=== PATIENT | female | born 1940 | race Caucasian/White ===

== ENCOUNTER 2017-06-09 09:56 | Inpatient (IN) | payer MEDICARE, OTHER ==
[~2017-06-09] VITALS: Ht 165.1 cm; Wt 78.5 kg
[2017-06-09 11:03] LABS: HEMOGLOBIN 14.8 gm/dl (12.3-15.3); RED BLOOD COUNT 4.65 M/UL (4.00-5.10); WHITE BLOOD COUNT 9.4 K/UL (4.5-11.0)
[2017-06-09 11:24] LABS: BUN/CREATININE RATIO 24 (0-10)
[2017-06-09] MEDS ORDERED: MAGNESIUM400 MG PO (17:15)
[2017-06-09] MEDS ORDERED: LISINOPRIL-HCT1 EAC1 PO (17:15)
[2017-06-09] MEDS ORDERED: FISH OIL 1,0001 EAC3 PO (17:16)
[2017-06-09] MEDS ORDERED: COUMADIN 5MG TAB5 MG PO (17:16)
[2017-06-09] MEDS ORDERED: DIGOXIN250 MCG PO (17:17)
[2017-06-09] MEDS ORDERED: DILTIAZEM 24HR180 M1 PO (17:18)
[2017-06-09] MEDS ORDERED: [UNRECOGNIZED DRUG - SUPPLY] PO (17:19)
[2017-06-09] MEDS ORDERED: NITROSTAT0.4 MG SL (17:20)
[2017-06-09] MEDS ORDERED: COUMADIN 2.5MG2.5 MG PO (17:23)
[2017-06-10 02:54] LABS: HEMOGLOBIN 13.1 gm/dl (12.3-15.3); WHITE BLOOD COUNT 7.7 K/UL (4.5-11.0)
[2017-06-10 03:02] LABS: RED BLOOD COUNT 4.14 M/UL (4.00-5.10)
[2017-06-10 03:16] LABS: BUN/CREATININE RATIO 27 (0-10)
[2017-06-11 06:33] LABS: BUN/CREATININE RATIO 30 (0-10)
[2017-06-12 05:51] LABS: HEMOGLOBIN 12.3 gm/dl (12.3-15.3); RED BLOOD COUNT 3.84 M/UL (4.00-5.10)
[2017-06-12 05:56] LABS: WHITE BLOOD COUNT 14.1 K/UL (4.5-11.0)
[2017-06-12 06:15] LABS: BUN/CREATININE RATIO 23 (0-10)
[2017-06-13 06:21] LABS: HEMOGLOBIN 11.9 gm/dl (12.3-15.3); RED BLOOD COUNT 3.69 M/UL (4.00-5.10); WHITE BLOOD COUNT 15.2 K/UL (4.5-11.0)
[2017-06-13 06:39] LABS: BUN/CREATININE RATIO 22 (0-10)
[2017-06-14 05:02] LABS: RED BLOOD COUNT 3.61 M/UL (4.00-5.10); WHITE BLOOD COUNT 12.9 K/UL (4.5-11.0)
[2017-06-15 06:57] LABS: HEMOGLOBIN 12.1 gm/dl (12.3-15.3); WHITE BLOOD COUNT 12.4 K/UL (4.5-11.0)
[2017-06-15 06:59] LABS: RED BLOOD COUNT 3.02 M/UL (4.00-5.10)
[2017-06-15 07:26] LABS: BUN/CREATININE RATIO 24 (0-10)
[2017-06-15] MEDS ORDERED: LEVAQUIN500 MG PO (11:01)
[2017-06-15] MEDS ORDERED: BREO ELLIPTA 11 EACH INH (11:05)
[2017-06-15] MEDS ORDERED: IPRAT-ALBUT 0.5-3 ML INH (11:13)
[2017-06-15] MEDS ORDERED: TESSALON PERLE100 MG PO (11:16)
[2017-06-15] MEDS ORDERED: MEDROL DOSEPAK 24 MG PO (11:17)
[2017-06-15] MEDS ORDERED: ROBITUSSIN DM473 ML PO (11:19)
[2017-06-15] MEDS ORDERED: ACIDOPHILUS LACT1 GM PO (11:32)
== END 2017-06-15 09:45 | disposition home or self-care (01) | DRG 167 ==
LOC: ER1 09:56 → ZEROF 12:48 → MED SURG 4 12:48
PROVIDERS: Emergency Medicine; Family Medicine; Internal Medicine; Physician Assistant; Physician Assistant Medical; ADMIT Internal Medicine Infectious Disease
PROC: 0BBC8ZX Excision of Right Upper Lung Lobe, Via Natural or Artificial Opening Endoscopic, Diagnostic (ICD-10-PCS; principal; 2017-06-12 08:52)
DX: J18.9 Pneumonia, unspecified organism (principal); T17.890A Other foreign object in other parts of respiratory tract causing asphyxiation, initial encounter; N30.00 Acute cystitis without hematuria; J98.11 Atelectasis; E87.6 Hypokalemia; I25.10 Atherosclerotic heart disease of native coronary artery without angina pectoris; I10 Essential (primary) hypertension; I48.91 Unspecified atrial fibrillation; T36.1X5A Adverse effect of cephalosporins and other beta-lactam antibiotics, initial encounter; L50.0 Allergic urticaria; R01.1 Cardiac murmur, unspecified; R79.1 Abnormal coagulation profile; Z90.710 Acquired absence of both cervix and uterus; Z79.01 Long term (current) use of anticoagulants; Z95.0 Presence of cardiac pacemaker; Z96.619 Presence of unspecified artificial shoulder joint; Z90.711 Acquired absence of uterus with remaining cervical stump; Z88.5 Allergy status to narcotic agent; Z88.1 Allergy status to other antibiotic agents; Z88.6 Allergy status to analgesic agent; Z88.0 Allergy status to penicillin; Z88.8 Allergy status to other drugs, medicaments and biological substances; Z91.048 Other nonmedicinal substance allergy status; Z79.899 Other long term (current) drug therapy; Z82.49 Family history of ischemic heart disease and other diseases of the circulatory system; Z80.9 Family history of malignant neoplasm, unspecified; Z83.3 Family history of diabetes mellitus
CPT/HCPCS: 36415; 71020; 71250; 80048; 80053; 80162; 81001; 82550; 82553; 82962; 83036; 83540; 83690; 83735; 83880; 84100; 84484; 85025; 85027; 85610; 86140; 86615; 87015; 87040; 87070; 87086; 87102; 87116; 87205; 87278; 93005; 94640; 94664; 96374; 96375; 99285; J1200; J1335; J2185; J2250; J2920; J2930; J3010; J7030; J7050; Q0163

== ENCOUNTER 2021-10-14 11:57 | Emergency (ER) | payer MEDICARE, OTHER ==
[~2021-10-14 11:57] MED LIST: ACIDOPHILUS LACT1 GM PO; BANOPHEN25 MG PO; BREO ELLIPTA 11 EACH INH; CLARITIN 10MG T10 MG PO; COUMADIN 10MG T10 MG PO; COUMADIN 2.5MG2.5 MG PO; COUMADIN 5MG TAB5 MG PO; COUMADIN5 MG PO; COUMADIN7.5 MG PO; DIGOXIN250 MCG PO; DILTIAZEM 24HR180 M1 PO; FISH OIL 1,0001 EAC3 PO; IPRAT-ALBUT 0.5-3 ML INH; LEVAQUIN500 MG PO; LISINOPRIL-HCT1 EAC1 PO; LISINOPRIL-HCT1 EAC2 PO; MAGNESIUM400 MG PO; MAGOX 400400 MG PO; MEDROL DOSEPAK 24 MG PO; NITROSTAT0.4 MG SL; RANITIDINE15 MG/1 ML PO; ROBITUSSIN DM473 ML PO; TESSALON PERLE100 MG PO; VALSARTAN80 MG PO; VIBRAMYCIN100 MG PO; [UNRECOGNIZED DRUG - SUPPLY] PO
[2021-10-14 13:38] LABS: HEMOGLOBIN 12.8 gm/dl (12.3-15.3); RED BLOOD COUNT 4.01 M/UL (4.00-5.10); WHITE BLOOD COUNT 8.7 K/UL (4.5-11.0)
[2021-10-14 14:07] LABS: BUN/CREATININE RATIO 19 (0-10)
== END 2021-10-14 19:45 | disposition home or self-care (01) ==
LOC: ER1 11:57
PROVIDERS: Physician Assistant Medical
DX: S20.223A Contusion of bilateral back wall of thorax, initial encounter (principal); S70.11XA Contusion of right thigh, initial encounter; E11.9 Type 2 diabetes mellitus without complications; I48.91 Unspecified atrial fibrillation; Z95.0 Presence of cardiac pacemaker; Z79.01 Long term (current) use of anticoagulants; W01.0XXA Fall on same level from slipping, tripping and stumbling without subsequent striking against object, initial encounter
CPT/HCPCS: 71250; 73701; 80053; 81001; 82550; 82553; 83874; 84484; 85025; 85610; 93005; 99284; Q9967

== ENCOUNTER 2021-12-14 11:43 | Inpatient (IN) | payer MEDICARE, OTHER ==
[~2021-12-14] VITALS: Ht 165.1 cm; Wt 74.8 kg
[~2021-12-14 11:43] MED LIST changes: -DILTIAZEM 24HR180 M1 PO; +DILTIAZEM 24HR360 MG PO
[2021-12-14 13:00] LABS: HEMOGLOBIN 11.7 gm/dl (12.3-15.3); RED BLOOD COUNT 3.94 M/UL (4.00-5.10); WHITE BLOOD COUNT 7.6 K/UL (4.5-11.0)
[2021-12-14 13:27] LABS: BUN/CREATININE RATIO 18 (0-10)
[2021-12-14] MEDS ORDERED: ASPIRIN EC81 MG PO (16:17)
[2021-12-14] MEDS ORDERED: MAGNESIUM OXID500 MG PO (16:18)
[2021-12-15 04:25] LABS: HEMOGLOBIN 10.9 gm/dl (12.3-15.3); RED BLOOD COUNT 3.64 M/UL (4.00-5.10); WHITE BLOOD COUNT 6.6 K/UL (4.5-11.0)
[2021-12-15 04:31] LABS: BUN/CREATININE RATIO 21 (0-10)
[2021-12-16 07:26] LABS: BUN/CREATININE RATIO 22 (0-10)
[2021-12-16] MEDS ORDERED: LASIX40 MG PO (08:02)
[2021-12-16 08:17] LABS: HEMOGLOBIN 11.6 gm/dl (12.3-15.3); RED BLOOD COUNT 3.84 M/UL (4.00-5.10); WHITE BLOOD COUNT 6.1 K/UL (4.5-11.0)
== END 2021-12-16 12:30 | disposition home or self-care (01) | DRG 291 ==
LOC: ER1 11:43 → CDU 14:37 → MED SURG 4 14:37 → PROG CARE 12-15 19:38
PROVIDERS: Emergency Medicine; Internal Medicine; ADMIT Internal Medicine
PROC: B24BZZZ Ultrasonography of Heart with Aorta (ICD-10-PCS; principal; 2021-12-15)
DX: I11.0 Hypertensive heart disease with heart failure (principal); Z20.822 Contact with and (suspected) exposure to COVID-19; I50.31 Acute diastolic (congestive) heart failure; J96.21 Acute and chronic respiratory failure with hypoxia; N39.0 Urinary tract infection, site not specified; I31.3 Pericardial effusion (noninflammatory); I48.20 Chronic atrial fibrillation, unspecified; R29.6 Repeated falls; R79.1 Abnormal coagulation profile; I49.5 Sick sinus syndrome; Z96.1 Presence of intraocular lens; R41.3 Other amnesia; I08.3 Combined rheumatic disorders of mitral, aortic and tricuspid valves; I27.20 Pulmonary hypertension, unspecified; R33.9 Retention of urine, unspecified; Z88.1 Allergy status to other antibiotic agents; Z95.0 Presence of cardiac pacemaker; Z87.440 Personal history of urinary (tract) infections; Z90.710 Acquired absence of both cervix and uterus; Z79.01 Long term (current) use of anticoagulants; Z98.42 Cataract extraction status, left eye; Z98.41 Cataract extraction status, right eye; Z90.49 Acquired absence of other specified parts of digestive tract; Z98.890 Other specified postprocedural states; Z79.82 Long term (current) use of aspirin; Z98.1 Arthrodesis status; Z88.0 Allergy status to penicillin; Z88.2 Allergy status to sulfonamides; Z88.8 Allergy status to other drugs, medicaments and biological substances; Z80.9 Family history of malignant neoplasm, unspecified; Z83.3 Family history of diabetes mellitus; Z82.49 Family history of ischemic heart disease and other diseases of the circulatory system
CPT/HCPCS: ECHO; 36415; 51798; 70450; 71045; 80048; 80053; 80061; 81001; 82550; 82553; 83036; 83735; 83880; 84484; 85025; 85027; 85610; 85730; 87040; 87086; 93005; 93306; 96374; 97161; 97165; 99285; J1644; J1940; J2920; Q9967; U0002

== ENCOUNTER → 2021-12-18 | Outpatient (CLI) | payer MEDICARE, OTHER ==
[~2021-12-18] MED LIST changes: +ASPIRIN EC81 MG PO; +LASIX40 MG PO; +MAGNESIUM OXID500 MG PO; +WARFARIN SODIUM5 MG PO
== END ==
LOC: LAB 10:48
DX: I48.91 Unspecified atrial fibrillation (principal); Z79.01 Long term (current) use of anticoagulants
CPT/HCPCS: 36415; 85610

== ENCOUNTER 2022-01-04 09:22 | Inpatient (IN) | payer MEDICARE, OTHER ==
[~2022-01-04] VITALS: Ht 165.1 cm; Wt 61.2 kg
[~2022-01-04 09:22] MED LIST changes: -WARFARIN SODIUM5 MG PO
[2022-01-04 10:06] LABS: HEMOGLOBIN 12.1 gm/dl (12.3-15.3); RED BLOOD COUNT 3.97 M/UL (4.00-5.10)
[2022-01-04 10:40] LABS: BUN/CREATININE RATIO 25 (0-10)
[2022-01-04] MEDS ORDERED: WARFARIN SODIUM5 MG PO ×2 (11:58→16:18)
[2022-01-04] MEDS ORDERED: VITAMIN D 40400 UNIT PO (14:10)
[2022-01-04 15:19] LABS: HEMOGLOBIN 11.7 gm/dl (12.3-15.3)
[2022-01-04 22:26] LABS: HEMOGLOBIN 10.4 gm/dl (12.3-15.3)
[2022-01-05 07:01] LABS: HEMOGLOBIN 9.1 gm/dl (12.3-15.3)
[2022-01-05 07:03] LABS: RED BLOOD COUNT 3.01 M/UL (4.00-5.10); WHITE BLOOD COUNT 4.9 K/UL (4.5-11.0)
[2022-01-05 07:19] LABS: BUN/CREATININE RATIO 22 (0-10)
[2022-01-06 06:46] LABS: HEMOGLOBIN 8.1 gm/dl (12.3-15.3); WHITE BLOOD COUNT 4.7 K/UL (4.5-11.0)
[2022-01-06 06:47] LABS: RED BLOOD COUNT 2.66 M/UL (4.00-5.10)
[2022-01-06 07:16] LABS: BUN/CREATININE RATIO 16 (0-10)
[2022-01-07 06:36] LABS: HEMOGLOBIN 8.4 gm/dl (12.3-15.3); RED BLOOD COUNT 2.71 M/UL (4.00-5.10)
[2022-01-07 07:51] LABS: BUN/CREATININE RATIO 15 (0-10)
[2022-01-08 06:08] LABS: HEMOGLOBIN 9.5 gm/dl (12.3-15.3); WHITE BLOOD COUNT 5.6 K/UL (4.5-11.0)
[2022-01-08 06:19] LABS: RED BLOOD COUNT 3.14 M/UL (4.00-5.10)
[2022-01-08 06:34] LABS: BUN/CREATININE RATIO 12 (0-10)
--- NOTE | 2022-01-08 16:47 | NUR ---
PT BACK FROM SURGERY. 2 DERMABOND SITES JO ANN IN ABDOMEN. ONE MIDLINE ABDOMINAL INCISION COVERED WITH ISLAND DRSG. ONE BROOKS DRAIN SITE. ALL WNL. PT SLEEPING. VITALS WNL. FAMILY AT BEDSIDE.
[2022-01-09 02:37] LABS: RED BLOOD COUNT 2.58 M/UL (4.00-5.10); WHITE BLOOD COUNT 21.5 K/UL (4.5-11.0)
[2022-01-09 02:57] LABS: BUN/CREATININE RATIO 18 (0-10)
--- NOTE | 2022-01-09 18:59 | NUR ---
1849- NURSE NOTIFIED OF PATIENT HAVING 10 BEAT RUN OF VTACH, NO NEW ORDERS.
[2022-01-10 04:16] LABS: HEMOGLOBIN 7.7 gm/dl (12.3-15.3); RED BLOOD COUNT 2.5 M/UL (4.00-5.10); WHITE BLOOD COUNT 14.6 K/UL (4.5-11.0)
[2022-01-10 04:43] LABS: BUN/CREATININE RATIO 18 (0-10)
[2022-01-11 05:58] LABS: HEMOGLOBIN 8.6 gm/dl (12.3-15.3); RED BLOOD COUNT 2.78 M/UL (4.00-5.10); WHITE BLOOD COUNT 11.4 K/UL (4.5-11.0)
[2022-01-11 06:20] LABS: BUN/CREATININE RATIO 19 (0-10)
[2022-01-12 06:47] LABS: HEMOGLOBIN 7.9 gm/dl (12.3-15.3); RED BLOOD COUNT 2.56 M/UL (4.00-5.10); WHITE BLOOD COUNT 9.4 K/UL (4.5-11.0)
[2022-01-12] MEDS ORDERED: LASIX40 MG PO (09:24)
--- NOTE | 2022-01-12 13:56 | NUR ---
PROVIDER WAS CALLED THIS AM TO INFORM THAT PATIENT'S BROOKS DRAIN WASN'T DRAINING MUCH AND THAT THE INCISION SITE ACTUALLY HAD MUCH MORE DRAINAGE LEAKING OUT. DR. CARROLL SUGGESTED STRIPPING THE DRAIN, WITH WAS DONE SEVERAL TIMES THROUGHOUT THE DAY. THE DRAIN STILL HAS VERY LITTLE OUTPUT ANT THE PATIENTS DRESSING (4X4'S AND TAPE) HAS BEEN SOAKED AND CHANGED TWICE. PROVIDER WAS CALLED THIS PM TO RELAY THAT INFORMATION, BUT THE PROVIDER COULD NOT BE REACHED. NO ANSWER ON PHONE AND NO MESSAGE COULD BE LEFT ON VOICEMAIL. WILL CONTINUE TO MONITOR.
[2022-01-13 05:53] LABS: HEMOGLOBIN 8.1 gm/dl (12.3-15.3); RED BLOOD COUNT 2.67 M/UL (4.00-5.10); WHITE BLOOD COUNT 10.3 K/UL (4.5-11.0)
[2022-01-13 06:14] LABS: BUN/CREATININE RATIO 14 (0-10)
[2022-01-13] MEDS ORDERED: IRON325 M1 PO (10:16)
== END 2022-01-13 12:57 | disposition home or self-care (01) | DRG 330 ==
LOC: ER1 09:22 → MED SURG 4 11:13 → PROG CARE 11:13 → CDU 11:13 → MED SURG 4 13:37 → PROG CARE 01-08 11:07 → MED SURG 4 01-09 13:31
PROVIDERS: Internal Medicine; Internal Medicine Gastroenterology; Physician Assistant; Physician Assistant Medical; ADMIT Internal Medicine
PROC: 0W3P8ZZ Control Bleeding in Gastrointestinal Tract, Via Natural or Artificial Opening Endoscopic (ICD-10-PCS; principal; 2022-01-05 10:57)
PROC: 0D1N0Z4 Bypass Sigmoid Colon to Cutaneous, Open Approach (ICD-10-PCS; 2022-01-08)
DX: K57.33 Diverticulitis of large intestine without perforation or abscess with bleeding (principal); I50.32 Chronic diastolic (congestive) heart failure; E87.3 Alkalosis; D62 Acute posthemorrhagic anemia; Z20.822 Contact with and (suspected) exposure to COVID-19; I36.1 Nonrheumatic tricuspid (valve) insufficiency; I11.0 Hypertensive heart disease with heart failure; I49.5 Sick sinus syndrome; E87.6 Hypokalemia; I48.0 Paroxysmal atrial fibrillation; Z96.619 Presence of unspecified artificial shoulder joint; Z79.01 Long term (current) use of anticoagulants; Z95.0 Presence of cardiac pacemaker; Z90.49 Acquired absence of other specified parts of digestive tract; Z98.890 Other specified postprocedural states; Z90.710 Acquired absence of both cervix and uterus; Z98.41 Cataract extraction status, right eye; Z98.42 Cataract extraction status, left eye; Z88.0 Allergy status to penicillin; Z91.041 Radiographic dye allergy status; Z88.8 Allergy status to other drugs, medicaments and biological substances; Z88.5 Allergy status to narcotic agent; Z82.49 Family history of ischemic heart disease and other diseases of the circulatory system; Z83.3 Family history of diabetes mellitus; Z91.048 Other nonmedicinal substance allergy status; Z88.2 Allergy status to sulfonamides
CPT/HCPCS: 36415; 80048; 80053; 81001; 82270; 82272; 82550; 82553; 83605; 83690; 83735; 84132; 84484; 85014; 85018; 85025; 85027; 85610; 86850; 86900; 86901; 86927; 93005; 93970; 96374; 97110-GP-CQ; 97116-GP-CQ; 97161; 97166; 99285; C9113; J0171; J1100; J1885; J2001; J2405; J2704; J2710; J3010; J7030; J7040; J7120; P9017; Q9967; U0002

== ENCOUNTER → 2022-03-10 | Outpatient (CLI) | payer MEDICARE, OTHER ==
[~2022-03-10] MED LIST changes: +IRON325 M1 PO; +VITAMIN D 40400 UNIT PO; +WARFARIN SODIUM5 MG PO
== END ==
LOC: CT 09:30 → HEART 5 10:00
DX: Z01.818 Encounter for other preprocedural examination (principal); I71.2 Thoracic aortic aneurysm, without rupture; I48.0 Paroxysmal atrial fibrillation; I27.20 Pulmonary hypertension, unspecified; I07.1 Rheumatic tricuspid insufficiency; Z95.0 Presence of cardiac pacemaker
CPT/HCPCS: 36415; 71275; 82565; 84520; 93306; Q9967

== ENCOUNTER → 2022-05-07 | Outpatient (CLI) | payer MEDICARE, OTHER ==
[~2022-05-07] MED LIST changes: +CANDICIDAL CAP1 EACH PO; +FUROSEMIDE40 MG PO; +POTASSIUM CHLO10 ME1 PO; +PROBIOTIC1 EACH PO; -VITAMIN D 40400 UNIT PO; +VITAMIN D325 MC6 PO; +WARFARIN SODIUM2 MG PO
[2022-05-07 11:29] LABS: BUN/CREATININE RATIO 21 (0-10)
== END ==
LOC: LAB 10:47
PROVIDERS: Physician Assistant
DX: E87.70 Fluid overload, unspecified (principal); R60.0 Localized edema
CPT/HCPCS: 36415; 80048; 83880

== ENCOUNTER 2022-05-10 13:32 | Inpatient (IN) | payer MEDICARE, OTHER ==
[~2022-05-10] VITALS: Ht 165.1 cm; Wt 59.9 kg
[~2022-05-10 13:32] MED LIST changes: -CANDICIDAL CAP1 EACH PO; -FUROSEMIDE40 MG PO; -POTASSIUM CHLO10 ME1 PO; -PROBIOTIC1 EACH PO
[2022-05-10 15:19] LABS: HEMOGLOBIN 12.5 gm/dl (12.3-15.3); RED BLOOD COUNT 4.21 M/UL (4.00-5.10); WHITE BLOOD COUNT 15.9 K/UL (4.5-11.0)
[2022-05-10 15:42] LABS: BUN/CREATININE RATIO 27 (0-10)
[2022-05-10] MEDS ORDERED: FUROSEMIDE40 MG PO (17:50)
[2022-05-10] MEDS ORDERED: POTASSIUM CHLO10 ME1 PO (17:51)
[2022-05-10] MEDS ORDERED: PROBIOTIC1 EACH PO (17:52)
[2022-05-10] MEDS ORDERED: ASPIRIN EC81 MG PO (17:53)
[2022-05-10] MEDS ORDERED: CANDICIDAL CAP1 EACH PO (17:53)
[2022-05-11 02:12] LABS: HEMOGLOBIN 10.9 gm/dl (12.3-15.3)
[2022-05-11 02:14] LABS: WHITE BLOOD COUNT 7.8 K/UL (4.5-11.0)
[2022-05-11 02:15] LABS: RED BLOOD COUNT 3.62 M/UL (4.00-5.10)
[2022-05-11 02:43] LABS: BUN/CREATININE RATIO 24 (0-10)
--- NOTE | 2022-05-11 14:39 | NUR ---
PT LEFT TO SX AT THIS TIME NOTED
[2022-05-12 05:37] LABS: HEMOGLOBIN 9.9 gm/dl (12.3-15.3); RED BLOOD COUNT 3.32 M/UL (4.00-5.10); WHITE BLOOD COUNT 9.4 K/UL (4.5-11.0)
[2022-05-13 05:24] LABS: HEMOGLOBIN 7.2 gm/dl (12.3-15.3); RED BLOOD COUNT 2.49 M/UL (4.00-5.10); WHITE BLOOD COUNT 15.5 K/UL (4.5-11.0)
[2022-05-13 05:28] LABS: BUN/CREATININE RATIO 32 (0-10)
[2022-05-14 04:02] LABS: HEMOGLOBIN 7.3 gm/dl (12.3-15.3); RED BLOOD COUNT 2.4 M/UL (4.00-5.10); WHITE BLOOD COUNT 13.9 K/UL (4.5-11.0)
[2022-05-14] MEDS ORDERED: CYCLOBENZAPRINE10 MG PO (09:22)
[2022-05-14] MEDS ORDERED: FERROUS SULFAT325 M2 PO (12:26)
--- NOTE | 2022-05-14 14:00 | NUR ---
Called report to miguel poe at [facility]. Pt going to be transported pov by son to rehab facility, iv removed, VSS.
== END 2022-05-14 14:05 | DRG 481 ==
LOC: ER1 13:32 → CDU 16:36 → CCU 16:36 → CDU 18:20 → CCU 18:35
PROVIDERS: Emergency Medicine; Orthopaedic Surgery; Physician Assistant Medical; ADMIT Internal Medicine Infectious Disease
PROC: 0QS606Z Reposition Right Upper Femur with Intramedullary Internal Fixation Device, Open Approach (ICD-10-PCS; principal; 2022-05-11 14:00)
DX: S72.141A Displaced intertrochanteric fracture of right femur, initial encounter for closed fracture (principal); D62 Acute posthemorrhagic anemia; I50.32 Chronic diastolic (congestive) heart failure; I48.92 Unspecified atrial flutter; I11.0 Hypertensive heart disease with heart failure; I49.5 Sick sinus syndrome; I36.1 Nonrheumatic tricuspid (valve) insufficiency; D50.9 Iron deficiency anemia, unspecified; I48.0 Paroxysmal atrial fibrillation; W01.0XXA Fall on same level from slipping, tripping and stumbling without subsequent striking against object, initial encounter; G89.29 Other chronic pain; Z83.3 Family history of diabetes mellitus; Z95.0 Presence of cardiac pacemaker; Z79.899 Other long term (current) drug therapy; Z98.42 Cataract extraction status, left eye; Z88.5 Allergy status to narcotic agent; Z88.8 Allergy status to other drugs, medicaments and biological substances; Z88.2 Allergy status to sulfonamides; Z90.49 Acquired absence of other specified parts of digestive tract; Z82.49 Family history of ischemic heart disease and other diseases of the circulatory system; Z98.890 Other specified postprocedural states; Z90.710 Acquired absence of both cervix and uterus; Z98.41 Cataract extraction status, right eye
CPT/HCPCS: 36415; 70450; 71045; 72125; 73502; 73552; 73590; 76000; 80048; 80053; 82550; 82553; 82607; 82728; 82746; 83540; 83550; 83735; 84484; 85025; 85027; 85610; 85730; 93005; 96374; 96375; 96376; 97110-GP-CQ; 97116; 97116-GP-CQ; 97161; 97166; 97530; 97530-GP-CQ; 97535; 99285; C1713; J0171; J0690; J1100; J1756; J2270; J2405; J2704; J2795; J3010